=== PATIENT | female | born 1990 | race African-American/Black ===

== ENCOUNTER 2017-09-18 12:55 | Emergency (ER) | payer OTHER ==
[2017-09-18 13:02] VITALS: BP 136/64; PULSE 62; TEMP 97.7; BMI 30.6
--- NOTE | 2017-09-18 14:32 | PDOC ---
History of Present Illness - General Chief Complaint: Sore Throat Stated Complaint: SORE THROAT Time Seen by Provider: 09/18/17 13:24 History Source: Patient Exam Limitations: No Limitations - History of Present Illness Initial Comments: 09/20/17 19:31 My Chief Complaint: sore throat History of present Illness: Pt. is a 26 y/o female with no signficant medical history here today c/o sore throat and noticing exudate on her uvular for the last few days. Pt. denies any fever or difficulty breathing or swallowing. Timing/Duration: getting worse (for 2 DAYS ) Severity: mild Associated Symptoms: reports: other (SORE THROAT , EXUDATE ON UVULAR PER PT. FOR 2 DAYS ) Past History - Past Medical History Allergies/Adverse Reactions: Allergies Allergy/AdvReac Type Severity Reaction Status Date / Time No Known Allergies Allergy Verified 09/18/17 13:01 Home Medications: Ambulatory Orders NK [No Known Home Medication] 09/18/17 COPD: No Other medical history: denies - Immunization History Immunization Up to Date: No - Suicide/Smoking/Psychosocial Hx Smoking History: Never smoked Have you smoked in the past 12 months: No Information on smoking cessation initiated: No Hx Alcohol Use: No Drug/Substance Use Hx: No Substance Use Type: Alcohol Review of Systems - Review of Systems Able to Perform ROS?: Yes Constitutional: No: Symptoms Reported HEENTM: Yes: Throat Pain, Other (white exudate uvular X 2 days ) Respiratory: No: Symptoms reported Cardiac (ROS): No: Symptoms Reported ABD/GI: No: Symptoms Reported : No: Symptoms Reported Musculoskeletal: No: Symptoms Reported Integumentary: No: Symptoms Reported Neurological: No: Symptoms reported *Physical Exam - Vital Signs Last Vital Signs Temp Pulse Resp BP Pulse Ox 97.7 F 62 17 136/64 99 09/18/17 12:59 09/18/17 12:59 09/18/17 12:59 09/18/17 12:59 09/18/17 12:59 - Physical Exam General Appearance: Yes: Appropriately Dressed HEENT: positive: TMs Normal, Pharyngeal Erythema. negative: Tonsillar Exudate, Tonsillar Erythema, Nasal Congestion, Rhinorrhea Neck: positive: Lymphadenopathy (L). negative: Lymphadenopathy (R) Respiratory/Chest: positive: Lungs Clear, Normal Breath Sounds. negative: Chest Tender Cardiovascular: positive: Regular Rhythm, Regular Rate, S1, S2 Integumentary: positive: Normal Color Neurologic: positive: Alert, Normal Response Medical Decision Making - Medical Decision Making 09/18/17 15:28 Pt. is a 26 y/o female with no signficant medical history here today c/o sore throat and noticing exudate on her uvular for the last few days. Pt. denies any fever or difficulty breathing or swallowing. 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 pharyngitis r/o strep PLAN: THROAT C & S RAPID NEGATIVE 09/20/17 19:32 *DC/Admit/Observation/Transfer Diagnosis at time of Disposition: Pharyngitis Qualifiers: Pharyngitis/tonsillitis etiology: unspecified etiology Qualified Code(s): J02.9 - Acute pharyngitis, unspecified - Discharge Dispostion Disposition: HOME Condition at time of disposition: Good - Referrals Referrals: Briana Pabon MD [Primary Care Provider] - - Patient Instructions Additional Instructions: Drink a lot of fluids and rest You may purchase Cepacol throat lozenges [id number] may be helpful for soreness of throat You may take acetaminophen as needed as directed by weights and measures inspector for pain Return to emergency room if symptoms worsen or new symptoms develop patient voiced understanding of discharge instructions and all questions were answered - Post Discharge Activity
== END 2017-09-18 15:33 | disposition home or self-care (01) ==
LOC: JERFT 12:55
DX: J02.9 Acute pharyngitis, unspecified (principal)
CPT/HCPCS: 87070; 87077; 87430; 99281-25

== ENCOUNTER 2019-02-16 17:50 | Inpatient (IN) | payer OTHER ==
[2019-02-16 18:26] VITALS: BMI 38.6
[2019-02-16 19:22] LABS: BASO % 0.2 % (0-2.0); EOS % 0.1 % (0-4.5); HEMATOCRIT 33.4 % (32.4-45.2); HEMOGLOBIN 10.9 GM/dL (10.7-15.3); LYMPH % 12.9 % (8-40); MCH 24.8 pg (25.7-33.7); MCHC 32.6 g/dl (32.0-36.0); MEAN CELL VOLUME 76.2 fl (80-96); MEAN PLT VOLUME 8.6 fl (7.5-11.1); MONO % 6.4 % (3.8-10.2); NEUT % 80.4 % (42.8-82.8); PLATELET COUNT 213 K/MM3 (134-434); RBC 4.38 M/mm3 (3.60-5.2); RDW 16.6 % (11.6-15.6); WHITE BLOOD COUNT 11.3 K/mm3 (4.0-10.0)
[2019-02-16 19:46] LABS: INR 0.92 (0.83-1.09); PROTHROMBIN TIME (PATIENT) 10.8 SEC (9.7-13.0)
[2019-02-16 19:48] LABS: ACTIVATED PTT 27.9 SECONDS (25.2-36.5)
[2019-02-16 19:52] LABS: ANION GAP 6 MMOL/L (8-16); BLOOD UREA NITROGEN 10 mg/dL (7-18); CALCIUM 9.2 mg/dL (8.5-10.1); CHLORIDE 104 mmol/L (98-107); CO2 25 mmol/L (21-32); CREATININE 0.7 mg/dL (0.55-1.3); GLUCOSE,RANDOM 77 mg/dL (74-106); POTASSIUM 4.6 mmol/L (3.5-5.1); SODIUM 136 mmol/L (136-145)
[2019-02-16] MEDS ORDERED: DINOPROSTONE 10 MG VAGINAL SUPPOSITORY VG ONE (22:30)
[2019-02-17] MEDS ORDERED: ELECTROLYTE-148 SOLN 500 ML IV ONE (01:50)
[2019-02-17] MEDS ORDERED: ELECTROLYTE-148 SOLN 1,000 ML IV SCH ×2 (02:50→07:45)
[2019-02-17] MEDS ORDERED: BUTORPHANOL TARTRATE 1 MG/ML VIAL IVPB ONE (03:50)
[2019-02-17] MEDS ORDERED: PROMETHAZINE HCL 25 MG/1 ML VIAL IVPB ONE (03:50)
[2019-02-17] MEDS ORDERED: BUTORPHANOL TARTRATE 2 MG/ML VIAL ONE (03:54)
[2019-02-17] MEDS ORDERED: PROMETHAZINE HCL 25 MG/1 ML VIAL ONE (03:55)
[2019-02-17] MEDS ORDERED: OXYTOCIN 20 UNITS in 0.9% NS 20 UNIT/1,000 ML INFUS.BAG IV ONE ×2 (06:32→09:11)
[2019-02-17] MEDS ORDERED: LIDOCAINE HCL 1% PRESERVATIVE FREE - 30ML VIAL ONE (06:37)
[2019-02-17] MEDS: OXYTOCIN 20 UNITS in 0.9% NS 20 UNIT/1,000 ML INFUS.BAG IV SCH ×2 (07:18→09:20)
--- NOTE | 2019-02-17 07:38 | HP ---
Past Medical History - Admission Chief Complaint: Gestational diabetes / 39 weeks gestation / Macrosomia History of Present Illness: 28 yo , @ 39 weeks gestation with GDMA1, admitted for induction of labor. History Source: Patient Limitations to Obtaining History: No Limitations - Past Medical History ...: 4 ...Para: 0 ...Term: 0 ...: 0 ...Spon : 0 ...Induced : 0 ...Multiple Gestation: 0 ...LMP: 05/15/18 ... Weeks Gestation by Dates: 39.4 ...EDC by Dates: 02/19/19 ...EDC by Sono: 02/23/19 - Past Surgical History Past Surgical History: Yes: None Hx Myomectomy: No Hx Transabdominal Cerclage: No - Smoking History Smoking history: Never smoked Have you smoked in the past 12 months: No - Alcohol/Substance Use Hx Alcohol Use: No Home Medications - Allergies Allergies/Adverse Reactions: Allergies Allergy/AdvReac Type Severity Reaction Status Date / Time No Known Allergies Allergy Verified 02/16/19 18:27 - Home Medications Home Medications: Ambulatory Orders Vits96/Iron Fum/Folic [ Tablet] 1 each PO DAILY 02/16/19 Family Disease History - Family Disease History Family History: Unremarkable Review of Systems - Review of Systems Constitutional: reports: No Symptoms Eyes: reports: No Symptoms HENT: reports: No Symptoms Neck: reports: No Symptoms Cardiovascular: reports: No Symptoms Respiratory: reports: No Symptoms Gastrointestinal: reports: No Symptoms Genitourinary: reports: No Symptoms Breasts: reports: No Symptoms Reported Musculoskeletal: reports: No Symptoms Integumentary: reports: No Symptoms Neurological: reports: No Symptoms Endocrine: reports: No Symptoms Hematology/Lymphatic: reports: No Symptoms Psychiatric: reports: No Symptoms Pain Intensity: 0 Physical Exam - Maternity Vital Signs: Vital Signs Temperature 98.7 F 02/17/19 06:00 Pulse Rate 80 02/17/19 06:00 Respiratory Rate 20 02/17/19 06:00 Blood Pressure 116/68 02/17/19 06:00 O2 Sat by Pulse Oximetry (%) Constitutional: Yes: Well Nourished Eyes: Yes: Conjunctiva Clear HENT: Yes: Atraumatic Neck: Yes: Supple Cardiovascular: Yes: Regular Rate and Rhythm Lungs: Clear to auscultation - Abdominal Exam/OB Number of Fetuses: Single Presentation: Vertex - Vaginal Exam/OB Vaginal Bleediing: No - Physical Exam Musculoskeletal: Yes: WNL Extremities: Yes: WNL ...Motor Strength: WNL Psychiatric: Yes: Alert, Oriented - Labs Lab Results: CBC, BMP 02/16/19 18:50 02/16/19 18:50 Problem List - Problems (1) 39 weeks gestation of Code(s): Z3A.39 - 39 WEEKS GESTATION OF (2) Gestational diabetes Code(s): O24.419 - GESTATIONAL DIABETES MELLITUS IN , UNSP CONTROL Qualifiers: Gestational diabetes mellitus control: diet-controlled Trimester: third trimester Qualified Code(s): O24.410 - Gestational diabetes mellitus in , diet controlled Assessment/Plan 39 weeks gestation GDMA1 Suspicion of Macrosomia Admit for cervidil induction
[2019-02-17] MEDS ORDERED: WITCH HAZEL 50% (TUCKS) 40 PAD/JAR PAD TP PRN (07:42)
[2019-02-17] MEDS ORDERED: METHYLERGONOVINE MALEATE 0.2 MG/1 ML AMP IM PRN (07:42)
[2019-02-17] MEDS ORDERED: BENZOCAINE 20% 57 GM BOTTLE TP PRN (07:42)
[2019-02-17] MEDS ORDERED: BENZOCAINE 28 GM HEMORRHOIDAL OINTMENT TP PRN (07:42)
[2019-02-17] MEDS ORDERED: BISACODYL 10 MG SUPP.RECT RC PRN (07:42)
--- NOTE | 2019-02-17 07:42 | PN ---
Delivery - Delivery Vaginal Delivery: Spontaneous Type of Anesthesia: Local Episiotomy/Laceration: 1st degree EBL (cc): 300 Delivery, Single - Feeding Plan Initial Plan: Elected not to breastfeed exclusively throughout hospitalization Remarks - Remarks Remarks: Normal spontaneous vaginal delivery of a live infant girl over first degree laceration. Nose / Oropharynx suctioned @ perineum. Cord clamped and cut. Baby handed to nurse. Placenta expelled spontaneously intact. Laceration repaired with 2.0 Biosyn.
[2019-02-17] MEDS ORDERED: IBUPROFEN 600 MG TABLET (FP) PO ONE (09:11)
[2019-02-17] MEDS: IBUPROFEN 600 MG TABLET (FP) PO PRN ×3 (09:15→21:17)
[2019-02-17] MEDS: PRENATAL VITAMINS W/ FOLIC ACID TABLET (FP) PO SCH (12:47)
[2019-02-17] MEDS: FERROUS SO4 325 MG TABLET (FP) PO SCH ×2 (12:47→21:16)
[2019-02-17] MEDS: ACETAMINOPHEN 325 MG TABLET (FP) PO PRN ×3 (12:47→21:16)
[2019-02-18 08:38] LABS: BASO % 0.4 % (0-2.0); EOS % 0.2 % (0-4.5); HEMATOCRIT 27.1 % (32.4-45.2); HEMOGLOBIN 8.7 GM/dL (10.7-15.3); LYMPH % 16.7 % (8-40); MCH 24.6 pg (25.7-33.7); MCHC 32.2 g/dl (32.0-36.0); MEAN CELL VOLUME 76.4 fl (80-96); MEAN PLT VOLUME 8.8 fl (7.5-11.1); MONO % 5.9 % (3.8-10.2); NEUT % 76.8 % (42.8-82.8); PLATELET COUNT 174 K/MM3 (134-434); RBC 3.55 M/mm3 (3.60-5.2); RDW 16.8 % (11.6-15.6); WHITE BLOOD COUNT 12.7 K/mm3 (4.0-10.0)
[2019-02-18] MEDS: PRENATAL VITAMINS W/ FOLIC ACID TABLET (FP) PO SCH (09:44)
[2019-02-18] MEDS: FERROUS SO4 325 MG TABLET (FP) PO SCH ×2 (09:44→23:00)
[2019-02-18] MEDS: ACETAMINOPHEN 325 MG TABLET (FP) PO PRN (15:57)
[2019-02-18] MEDS: IBUPROFEN 600 MG TABLET (FP) PO PRN (15:58)
--- NOTE | 2019-02-18 20:19 | PN ---
Post Progress Note - Subjective Subjective: 28 yo Para 1, status post vaginal delivery, seen and evaluated. Doing well. Post Day: 1 Type of Delivery: Vital Signs: Vital Signs Temperature 98.4 F 02/18/19 18:00 Pulse Rate 92 H 02/18/19 18:00 Respiratory Rate 18 02/18/19 18:00 Blood Pressure 108/55 L 02/18/19 18:00 O2 Sat by Pulse Oximetry (%) Breast Exam: Yes: Soft Uterus: Yes: Fundus Firm Abdomen/GI: Yes: Abdomen soft, Tolerating PO Lochia: Yes: Rubra Lochia, amount: Moderate Extremities: Yes: Calves non-tender Perineum: Yes: Laceration (healing) Activity: Ambulating - Labs Labs: CBC WBC 12.7 K/mm3 (4.0-10.0) H 02/18/19 07:30 RBC 3.55 M/mm3 (3.60-5.2) L 02/18/19 07:30 Hgb 8.7 GM/dL (10.7-15.3) L 02/18/19 07:30 Hct 27.1 % (32.4-45.2) L D 02/18/19 07:30 MCV 76.4 fl (80-96) L 02/18/19 07:30 MCH 24.6 pg (25.7-33.7) L 02/18/19 07:30 MCHC 32.2 g/dl (32.0-36.0) 02/18/19 07:30 RDW 16.8 % (11.6-15.6) H 02/18/19 07:30 Plt Count 174 K/MM3 (134-434) 02/18/19 07:30 MPV 8.8 fl (7.5-11.1) 02/18/19 07:30 Absolute Neuts (auto) 9.8 K/mm3 (1.5-8.0) H 02/18/19 07:30 Neutrophils % 76.8 % (42.8-82.8) 02/18/19 07:30 Lymphocytes % 16.7 % (8-40) D 02/18/19 07:30 Monocytes % 5.9 % (3.8-10.2) 02/18/19 07:30 Eosinophils % 0.2 % (0-4.5) D 02/18/19 07:30 Basophils % 0.4 % (0-2.0) 02/18/19 07:30 Nucleated RBC % 0 % (0-0) 02/18/19 07:30 Problem List - Problems (1) 39 weeks gestation of Code(s): Z3A.39 - 39 WEEKS GESTATION OF (2) Gestational diabetes Code(s): O24.419 - GESTATIONAL DIABETES MELLITUS IN , UNSP CONTROL Qualifiers: Gestational diabetes mellitus control: diet-controlled Trimester: third trimester Qualified Code(s): O24.410 - Gestational diabetes mellitus in , diet controlled (3) Status post normal vaginal delivery Code(s): [id number] - Assessment/Plan Status post vaginal delivery Stable Continue routine care
[2019-02-18] MEDS ORDERED: SENNOSIDES/DOCUSATE COMBO (SENNA PLUS) TABLET (UD) PO PRN (22:00)
[2019-02-19] MEDS: IBUPROFEN 600 MG TABLET (FP) PO PRN (07:53)
[2019-02-19] MEDS: ACETAMINOPHEN 325 MG TABLET (FP) PO PRN (07:54)
[2019-02-19 09:25] VITALS: BP 118/61; PULSE 88; TEMP 98
--- NOTE | 2019-02-19 09:44 | DS ---
Physical Exam-HOSPITALITY COORDINATOR Vital Signs: Vital Signs Temperature 98 F 02/19/19 09:25 Pulse Rate 88 02/19/19 09:25 Respiratory Rate 18 02/19/19 09:25 Blood Pressure 118/61 02/19/19 09:25 O2 Sat by Pulse Oximetry (%) Constitutional: Yes: Well Nourished Eyes: Yes: Conjunctiva Clear HENT: Yes: Atraumatic Neck: Yes: Supple Cardiovascular: Yes: Regular Rate and Rhythm Respiratory: Yes: Regular Gastrointestinal: Yes: Normal Bowel Sounds Pelvis: Yes: WNL External Genitalia: Yes: Normal Vaginal Exam: Yes: Normal Cervix: Yes: Normal Uterus: Yes: Firm ....Post : Yes: Uterus firm, Moderate lochia serosa Breast(s): Yes: WNL Musculoskeletal: Yes: WNL Extremities: Yes: WNL Neurological: Yes: Alert, Oriented ...Motor Strength: WNL Psychiatric: Yes: Alert, Oriented Labs: CBC, BMP 02/18/19 07:30 02/16/19 18:50 Delivery - Delivery Vaginal Delivery: Spontaneous Type of Anesthesia: Local, None Episiotomy/Laceration: None, 1st degree EBL (cc): 300 Delivery, Single - Stages of Labor Date 1st Stage Initiatied: 02/17/19 Time 1st Stage Initiated: 01:30 Date 2nd Stage Initiated: 02/17/19 Time 2nd Stage Initiated: 07:00 Date of Delivery: 02/17/19 Time of Delivery: 07:16 Time Placenta Delivered: 07:18 - Condition of Hr Business Partner/Home Care Coordinator Present: No Gender: Female Weight: 8 lb Position: Left, OA Total Hours ROM (Hrs/Mins): 5/18 - 1 Minute Total Score: 9 5 Minutes Total Score: 9 - [place] Feeding Plan Initial Plan: Elected not to breastfeed exclusively throughout hospitalization Discharge Summary Reason For Visit: INDUCTION OF LABOR Current Active Problems 39 weeks gestation of (Acute) Gestational diabetes (Acute) Status post normal vaginal delivery (Acute) Procedures: Principal: Normal spontaneous vaginal delivery Hospital Course: Routine care Condition: Good - Instructions Diet, Activity, Other Instructions: Regular diet No douching, no sexual intercourse x 6 weeks F/U with MD in 6 weeks Disposition: HOME - Home Medications Comprehensive Discharge Medication List: Ambulatory Orders Vits96/Iron Fum/Folic [ Tablet] 1 each PO DAILY 02/16/19
[2019-02-19] MEDS: FERROUS SO4 325 MG TABLET (FP) PO SCH (09:58)
[2019-02-19] MEDS: PRENATAL VITAMINS W/ FOLIC ACID TABLET (FP) PO SCH (09:58)
== END 2019-02-19 10:05 | disposition home or self-care (01) | DRG 807 ==
LOC: JLDR 17:50 → J3W 02-17 09:25
PROVIDERS: ADMIT Obstetrics & Gynecology; ATTEND Obstetrics & Gynecology
PROC: 10E0XZZ Delivery of Products of Conception, External Approach (ICD-10-PCS; principal; 2019-02-17)
PROC: 0HQ9XZZ Repair Perineum Skin, External Approach (ICD-10-PCS; 2019-02-17)
DX: O24.420 Gestational diabetes mellitus in childbirth, diet controlled (principal); Z37.0 Single live birth; O70.0 First degree perineal laceration during delivery; Z3A.39 39 weeks gestation of pregnancy
CPT/HCPCS: 36415; 59409; 80048; 82962; 85025; 85610; 85730; 86593; 86850; 86900; 86901